=== PATIENT | female | born 2000 | race Caucasian/White ===

== ENCOUNTER → 2019-08-25 15:33 | Outpatient (CLI) | payer BC, SELFPAY ==
[2019-08-25 17:17] LABS: Appearance Urine UA CLEAR; Bilirubin Urine UA NEGATIVE (NEGATIVE); Color Urine UA YELLOW; Glucose Urine UA NEGATIVE (Negative); Ketones Urine UA NEGATIVE (NEGATIVE); Leukocyte Esterase Urine UA NEGATIVE (NEGATIVE); Nitrite Urine UA NEGATIVE (Negative); Occult Blood Urine UA TRACE-INTACT (Negative); Protein Urine UA NEGATIVE (Negative); Specific Gravity Urine UA 1.025 (1.000-1.035); Urobilinogen Urine UA 0.2 E.U./dL (0.2)
[2019-08-25 17:39] LABS: Add Manual Diff / Slide Review NO; Basophils Absolute Auto 100 /uL (0-100); Eosinophils Absolute Auto 100 /uL (0-450); Eosinophils Percent Auto 0.6 % (2-4); Hemoglobin 12.8 g/dL (12.0-16.0); Lymphocytes Absolute Auto 1500 /uL (1100-4500); Lymphocytes Percent Auto 17.5 % (25-40); Mean Corpuscular HGB Conc 33.9 % (30-36); Mean Corpuscular Hemoglobin 30.4 PG (26-34); Mean Corpuscular Volume 89.9 fL (80-100); Monocytes Absolute Auto 1000 /uL (0-900); Neutrophils Absolute Auto 6100 /uL (1500-7000); Neutrophils Percent Auto 69.9 % (50-75); Platelet Count 276 X10^3/uL (150-400); Red Blood Cell Count 4.22 X10^6/uL (4.0-5.2); Red Cell Distribution Width 12.9 % (11.6-14.8); White Blood Cell Count 8.7 X10^3/uL (4.5-11.0)
[2019-08-25 18:45] LABS: Hepatitis B Surface Antigen NEGATIVE s/c (NEGATIVE); Rubella Antibody IgG 4.1 IU/mL (>15)
[2019-08-25 18:57] LABS: HIV 1 & 2 Ab/Ag 4th Gen Combo NEGATIVE (NEGATIVE); Hep C Virus Ab w/Reflex Quant NEGATIVE s/c (NEGATIVE)
[2019-08-27 13:55] LABS: Varicella IgG Antibody < 135.00 Index (< 135.00)
[2019-08-27 22:23] LABS: RPR Screen Nonreactive (Nonreactive)
== END ==
PROVIDERS: PCP Family Medicine; Visit Provider Family Medicine
DX: Z34.01 Encounter for supervision of normal first pregnancy, first trimester (principal)
CPT/HCPCS: 36415; 80055; 81003; 86787; 86803; 86850; 86900; 86901; 87086; 87389

== ENCOUNTER → 2019-11-23 08:31 | Outpatient (CLI) | payer BC, SELFPAY ==
--- NOTE | 2019-11-23 08:33 | DI.US.S_ITS ---
PROCEDURE: US OB >= 14 WEEKS FETUS INDICATIONS: ANATOMY SCAN OUTSIDE/PRIOR DATING DATA: Last menstrual period (LMP): 07/06/19. LMP-based estimated date of delivery (RACHEAL): 04/11/20. First dating scan (date and location): This study. Estimated date of delivery (RACHEAL) from first dating scan: 04/14/20. TECHNIQUE: Real-time scanning was performed of the fetus, with image documentation and biometric measurements. COMPARISON: Reportedly first trimester OB ultrasound was performed but imaging from that examination is not available for review. FINDINGS: General: A single living intrauterine gestation is present. Presentation: Breech Placenta: Placental position is fundal, without previa. Amniotic fluid index: 13.3 cm, normal range is 5-24 cm. heart rate: 152 beats per minute. Maternal cervical canal: 3.6 cm long. Normal lower limit is 2.5 cm. biometrics: Biparietal diameter: 4.6 cm, 19 weeks 6 days Head circumference: 16.9 cm, 19 weeks 3 days Abdominal circumference: 14.5 cm, 19 weeks 6 days Femur length: 2.9 cm, 19 weeks 0 days Estimated gestational age from initial scan: Not available for review.. Composite gestational age from present scan: 19 weeks 4 days Estimated weight and percentile: 293 g, 18th percentile Measurement variability for biometric dating: +/- 7 days from 14 weeks to 15 weeks 6 days gestation, +/- 10 days from 16 weeks to 21 weeks 6 days gestation, +/- 2 weeks from 22 weeks to 27 weeks 6 days gestation, +/- 3 weeks for 28 weeks gestation or later. weight reference: 4500 g or EFW >90/95% is considered macrosomia or large for gestational age. EFW <10% is small for gestational age. EFW 5% or less is considered intra-uterine growth restriction. Anatomic survey: Neuro: Ventricles are non-dilated at less than 10 mm. Cisterna magna is normal at 3-11 mm. Cerebellum is normal in size and morphology. Nuchal skin fold: Rotation of the fetus and relative neck extension resulted in variable thickness measurements, with inability to visualize the lower margin of the occipital bone in mid sagittal plane to establish accurate cross-sectional thickness. Face: Nose and lips, facial profile are normal. Spine: Not well-visualized due to positioning and rotation.. Heart: 4-chambered heart is present, with ventricular outflow tracts were not well seen. Diaphragm: Diaphragm is intact. Stomach: Not well-seen. Kidneys: Not well-seen. Cord: 2-vessel cord has orthotopic insertion. Bladder: Normal in size. Extremities: All 4 extremities identified. IMPRESSION: 1. Reportedly a first trimester OB ultrasound was performed but is not available for review. Images from that study should be obtained if possible and be entered into the PACS system for reference to this examination and the anticipated followup evaluation discussed below. 2. The current estimated age is 19 weeks 4 days with delivery date projected to be centered on 04/14/20. Accuracy of dating is highest with the earliest OB ultrasound and therefore reference to the first OB ultrasound is recommended to establish appropriate interval growth. 3. anatomic survey is incomplete as detailed above. Note is made of what appears to be a 2 vessels cord. Significant portions of the anatomy were not obtained, and repeat sonographic assessment is recommended within 7-10 days. Current presentation is breech. Dictated by: Rivera Rapp M.D. on 11/23/2019 at 14:55 Approved by: Rivera Rapp M.D. on 11/23/2019 at 15:52
== END ==
PROVIDERS: PCP Family Medicine; Referring Provider Family Medicine; Visit Provider Family Medicine
DX: Z34.02 Encounter for supervision of normal first pregnancy, second trimester (principal); Z3A.19 19 weeks gestation of pregnancy
CPT/HCPCS: 76811

== ENCOUNTER → 2020-01-18 15:50 | Outpatient (CLI) | payer BC, SELFPAY ==
[2020-01-18 17:25] LABS: Add Manual Diff / Slide Review NO; Basophils Absolute Auto 100 /uL (0-100); Basophils Percent Auto 0.4 % (0-2); Eosinophils Absolute Auto 100 /uL (0-450); Eosinophils Percent Auto 0.6 % (2-4); Hematocrit 31.9 % (36-46); Hemoglobin 11.1 g/dL (12.0-16.0); Lymphocytes Absolute Auto 1200 /uL (1100-4500); Lymphocytes Percent Auto 8.5 % (25-40); Mean Corpuscular HGB Conc 34.9 % (30-36); Mean Corpuscular Hemoglobin 31.4 PG (26-34); Mean Corpuscular Volume 90.1 fL (80-100); Monocytes Absolute Auto 1500 /uL (0-900); Monocytes Percent Auto 10.4 % (3-14); Neutrophils Absolute Auto 11500 /uL (1500-7000); Neutrophils Percent Auto 80.1 % (50-75); Platelet Count 244 X10^3/uL (150-400); Red Blood Cell Count 3.54 X10^6/uL (4.0-5.2); Red Cell Distribution Width 12.6 % (11.6-14.8); White Blood Cell Count 14.4 X10^3/uL (4.5-11.0)
[2020-01-18 17:53] LABS: GTT (PREG) 1 Hour PP 50gm Dose 116 mg/dL (76-139)
== END ==
PROVIDERS: PCP Family Medicine; Referring Provider Family Medicine; Visit Provider Family Medicine
DX: Z34.81 Encounter for supervision of other normal pregnancy, first trimester (principal)
CPT/HCPCS: 36415; 82950; 85025

== ENCOUNTER 2020-02-17 13:58 | Outpatient (CLI) | payer BC, SELFPAY ==
--- NOTE | 2020-02-17 14:45 | PM.OBTRLD ---
Visit Information Visit Information Date of evaluation: 02/17/20 Primary OB Provider: Britta Wilburn On-call OB Provider: Flora Baca Reason for Evaluation: Yes non-stress test non-stress test reason: other (Two vessel cord, tetralogy of Fallot, IUGR, ambiguous genitalia, possible SLoS) Vital Signs Vital Signs: Temperature 97.5 Blood pressure 136/77 Heart rate 95 PFSH Medical History Anxiety (Acute) Pityriasis rosea (Acute) Family History Mother Depression Anxiety and depression Father Anxiety and depression Grandfather Hypertension Afib H/O aortic valve replacement Congestive heart failure Grandmother Rheumatoid arthritis Multi-organ failure with liver failure Grandfather Acute alcohol abuse Grandmother Emphysema of lung Sister Anxiety and depression Social History marital status: unmarried,living together (engaged) household members: significant other pets and animals: Yes (cat and aware) education level: high school 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 No contractions on the monitor. NST was reactive. Follow-up as scheduled with Dr. Wilburn. OB Disposition: home
== END 2020-02-17 14:35 | disposition home or self-care (01) ==
LOC: LABOR 14:20 → OB 02-18 11:34
PROVIDERS: PCP Family Medicine; Referring Provider Family Medicine; Visit Provider Family Medicine
DX: O35.8XX0 Maternal care for other (suspected) fetal abnormality and damage, not applicable or unspecified (principal); P05.9 Newborn affected by slow intrauterine growth, unspecified; Z3A.32 32 weeks gestation of pregnancy
CPT/HCPCS: 59025; G0378; G0379

== ENCOUNTER → 2020-02-21 10:20 | Outpatient (CLI) | payer BC, SELFPAY ==
--- NOTE | 2020-02-21 10:27 | DI.US.S_ITS ---
PROCEDURE: US OB LIMITED INDICATIONS: 2-VESSEL CORD; TETROLOGY OF FALLOT OUTSIDE/PRIOR DATING DATA: Last menstrual period (LMP): 07/06/19. LMP-based estimated date of delivery (RACHEAL): 04/11/20 . First dating scan (date and location): Not available . Estimated date of delivery (RACHEAL) from first dating scan: Not available . TECHNIQUE: Real-time scanning was performed of the fetus, with image documentation. Endovaginal scanning: Not performed. COMPARISON: None. FINDINGS: A single living intrauterine gestation is present. Presentation: Vertex. Placenta: Placental position is right fundal , without previa. Amniotic fluid index: 16.3 cm, normal range is 5-24 cm. heart rate: 137 beats per minute. Maternal cervical canal: 3.5 cm long. Normal lower limit is 2.5 cm. Estimated gestational age from initial scan: 32 weeks 3 days . Two vessel cord noted, previously documented. The systolic/diastolic ratio is 3.5/2.9 IMPRESSION: Single living intrauterine gestation, documented 2 vessel cord, no sign of hydrops, normal amniotic fluid volume. Cord systolic/diastolic ratio at 2 sites measures 3.5 and 2.9, respectively. Dictated by: Rivera Rapp M.D. on 02/21/2020 at 13:37 Approved by: Rivera Rapp M.D. on 02/21/2020 at 13:41
[2020-02-21 10:59] LABS: Protein (Total) Urine Random 10 mg/dL (0-12)
[2020-02-21 11:00] LABS: Creatinine Urine Random 73.3 mg/dL; Protein (Total) Urine Random 10 mg/dL (0-12); Protein Creatinine Ratio Urine 0.13 GRAM/24H
[2020-02-21 11:01] LABS: Collection Time Urine 24 Hours; Total Protein 24 Hour Urine 185 mg/day (42-225); Total Volume Urine 1850 mL
[2020-02-21 11:14] LABS: Add Manual Diff / Slide Review NO; Basophils Absolute Auto 100 /uL (0-100); Basophils Percent Auto 0.5 % (0-2); Eosinophils Absolute Auto 100 /uL (0-450); Eosinophils Percent Auto 0.4 % (2-4); Hemoglobin 11.7 g/dL (12.0-16.0); Lymphocytes Absolute Auto 1200 /uL (1100-4500); Mean Corpuscular HGB Conc 33.5 % (30-36); Mean Corpuscular Hemoglobin 30.2 PG (26-34); Mean Corpuscular Volume 90.1 fL (80-100); Monocytes Absolute Auto 1200 /uL (0-900); Monocytes Percent Auto 8.3 % (3-14); Neutrophils Absolute Auto 12000 /uL (1500-7000); Neutrophils Percent Auto 82.8 % (50-75); Platelet Count 230 X10^3/uL (150-400); Red Blood Cell Count 3.88 X10^6/uL (4.0-5.2); Red Cell Distribution Width 12.7 % (11.6-14.8); White Blood Cell Count 14.5 X10^3/uL (4.5-11.0)
[2020-02-21 11:28] LABS: Alanine Aminotransferase 12 IU/L (<35); Albumin 3.7 g/dL (3.5-5.0); Albumin Globulin Ratio 1.1 (1.0-2.8); Alkaline Phosphatase 146 U/L (38-126); Aspartate Aminotransferase 20 IU/L (14-36); BUN Creatinine Ratio 13.7 (6-22); Bilirubin Total 0.3 mg/dL (0.2-1.3); Blood Urea Nitrogen 7 mg/dL (7-17); Calcium 9.4 mg/dL (8.4-10.2); Carbon Dioxide 26 mmol/L (22-32); Chloride 106 mmol/L (98-107); Estimated Glomerular Filt Rate > 60.0 mL/min (>60); Globulin 3.5 g/dL (1.7-4.1); Glucose 109 mg/dL (70-100); HEMOLYSIS < 15 (0-50); Potassium 3.9 mmol/L (3.4-5.1); Sodium 140 mmol/L (137-145); Total Protein 7.2 g/dL (6.3-8.2); Uric Acid 4.1 mg/dL (2.5-6.2)
== END ==
PROVIDERS: PCP Family Medicine; Referring Provider Family Medicine; Visit Provider Family Medicine
DX: O09.93 Supervision of high risk pregnancy, unspecified, third trimester (principal); O36.5930 Maternal care for other known or suspected poor fetal growth, third trimester, not applicable or unspecified; O35.8XX0 Maternal care for other (suspected) fetal abnormality and damage, not applicable or unspecified; O16.3 Unspecified maternal hypertension, third trimester; R03.0 Elevated blood-pressure reading, without diagnosis of hypertension; Z3A.32 32 weeks gestation of pregnancy
CPT/HCPCS: 36415; 59025; 76815; 80053; 82570; 84156; 84550; 85025

== ENCOUNTER 2020-02-21 10:50 | Outpatient (CLI) | payer BC, SELFPAY ==
--- NOTE | 2020-02-21 11:36 | PM.OBTRLD ---
Visit Information Visit Information Date of evaluation: 02/21/20 Primary OB Provider: Britta Wilburn Reason for Evaluation: Yes non-stress test non-stress test reason: other (tetralogy of fallot, IUGR) Comments/Additional reasons for admission: Pt here for NST due to IUGR. also complicated by tetralogy of fallot, pelvic kidney, ambiguous genitalia. Pts BPs have been rising recently - not formally diagnosed with gestational HTN or pre-eclampsia. [facility] Medical History (Updated 02/21/20 @ 11:39 by Britta Wilburn MD) Anxiety (Acute) Pityriasis rosea (Acute) Family History Mother Depression Anxiety and depression Father Anxiety and depression Grandfather Hypertension Afib H/O aortic valve replacement Congestive heart failure Grandmother Rheumatoid arthritis Multi-organ failure with liver failure Grandfather Acute alcohol abuse Grandmother Emphysema of lung Sister Anxiety and depression Social History marital status: unmarried,living together (engaged) household members: significant other pets and animals: Yes (cat and aware) education level: high school 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 occupational exposures/hazards: Yes (safety issues with some patients ) special milagros needs: No Smoking Status: Former smoker (smoked weed - stopped 5 months ago) Evaluation Evaluation Baseline heart rate: 130 Variability: Moderate (11-25) monitor accelerations: Present monitor decelerations: Absent Category of Tracing: I Diagnosis, Plan/Disposition Final Diagnosis (1) Elevated blood pressure affecting in third trimester, antepartum: Status: Acute (2) Tetralogy of Fallot of fetus affecting management of mother in brown , antepartum: Status: Acute (3) IUGR (intrauterine growth restriction): Status: Acute (4) 32 weeks gestation of : Status: Acute Plan/Disposition Plan: 32wks gestation here for NST due to IUGR with complicated with above as well. NST reactive. Umbilical dopplers today as well through the hospital. OB Disposition: home
== END 2020-02-21 11:29 | disposition home or self-care (01) ==
LOC: LABOR 10:59 → OB 02-22 10:01
PROVIDERS: PCP Family Medicine; Referring Provider Family Medicine; Visit Provider Family Medicine
DX: O36.5930 Maternal care for other known or suspected poor fetal growth, third trimester, not applicable or unspecified (principal); O35.8XX0 Maternal care for other (suspected) fetal abnormality and damage, not applicable or unspecified; R03.0 Elevated blood-pressure reading, without diagnosis of hypertension; Z3A.32 32 weeks gestation of pregnancy
CPT/HCPCS: 59025; G0378; G0379

== ENCOUNTER 2020-02-24 14:02 | Outpatient (CLI) | payer BC, SELFPAY ==
--- NOTE | 2020-02-24 14:28 | PM.OBTRLD ---
Visit Information Visit Information Date of evaluation: 02/24/20 Primary OB Provider: Britta Wilburn On-call OB Provider: Akila Dow Reason for Evaluation: Yes non-stress test non-stress test reason: other (Tetralogy of Fallot) [facility] Medical History (Updated 02/24/20 @ 14:30 by Akila Dow MD) Anxiety (Acute) Pityriasis rosea (Acute) Family History Mother Depression Anxiety and depression Father Anxiety and depression Grandfather Hypertension Afib H/O aortic valve replacement Congestive heart failure Grandmother Rheumatoid arthritis Multi-organ failure with liver failure Grandfather Acute alcohol abuse Grandmother Emphysema of lung Sister Anxiety and depression Social History marital status: unmarried,living together (engaged) household members: significant other pets and animals: Yes (cat and aware) education level: high school 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 Wilburn as scheduled OB Disposition: home
== END 2020-02-24 14:30 | disposition home or self-care (01) ==
LOC: LABOR 14:08 → OB 02-25 12:42
PROVIDERS: PCP Family Medicine; Referring Provider Family Medicine; Visit Provider Family Medicine
DX: O35.8XX0 Maternal care for other (suspected) fetal abnormality and damage, not applicable or unspecified (principal); Z3A.33 33 weeks gestation of pregnancy
CPT/HCPCS: 59025; G0378; G0379

== ENCOUNTER 2020-02-25 06:20 | Inpatient (IN) | payer BC, SELFPAY ==
[2020-02-25 07:22] VITALS: BP 132/86
--- NOTE | 2020-02-25 07:42 | P.HPOB_ITS ---
OB HPI Date/Time Date of admission: 02/25/20 Date Patient Seen: 02/25/20 Time Patient Seen: 07:42 History of Present Condition Chief complaint: MATERNITY : 1 Para: 0 Estimated Date of Delivery: 04/11/20 Estimated Gestational Age (weeks): 32 Narrative: Jesusita Gilbert is a 19 year old female 1 para 032 weeks gestation who presented with gross rupture of membranes. She reports waking up to a gush of clear fluid. She continues to leak. No vaginal bleeding. Contractions started almost immediately. Initially they were very very mild, but now are about a 3/10. Her has been complicated by multiple anomalies including Tetralogy of Fallot, right pelvic kidney, IUGR, and ambiguous genitalia. She has been followed by Maternal- Medicine at the [facility], and the plan was to transfer care at 36 weeks. History of Present care: good care, initiated at week # (6), number of visits (8 here, several at ) and pounds weight gain (19) Dating criteria: LMP confirmed by 1st trimester US Ultrasounds: abnormal US findings Abnormal ultrasound findings: Tetralogy of Fallot, right pelvic kidney, ambiguous genitalia, IUGR Obstetrical complications: growth restriction Medical complications: none Preadmission Labs Blood type: O (+) positive -: Antibody screen: negative, GBS status: unknown, HBsAG: negative, HIV: negative and RPR/VDLR: negative -: Rubella: not immune and Varicella: not immune HCT: 35 HCAB: negative Urine: Lactobacillus 1 hr GTT: 116 Prior (ies) History: N/A Evaluation Evaluation Baseline heart rate: 150 Variability: Moderate (11-25) monitor accelerations: Present monitor decelerations: Absent Contraction Frequency (minutes): 2 Uterine Contraction Intensity: Mild Category of Tracing: I Cervical dilation (cm): 0 Cervical effacement (%): 25 station: -2 Non-invasive Membranes Rupture Test: positive Comments: Bedside ultrasound: Vertex [facility] Medical History (Updated 02/24/20 @ 14:30 by Akila Dow MD) Anxiety (Acute) Pityriasis rosea (Acute) Family History Mother Depression Anxiety and depression Father Anxiety and depression Grandfather Hypertension Afib H/O aortic valve replacement Congestive heart failure Grandmother Rheumatoid arthritis Multi-organ failure with liver failure Grandfather Acute alcohol abuse Grandmother Emphysema of lung Sister Anxiety and depression Social History marital status: unmarried,living together (engaged) household members: significant other pets and animals: Yes (cat and aware) education level: high school 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[employer]) current occupational exposures/hazards: Yes (safety issues with some patients ) special milagros needs: No Smoking Status: Former smoker Meds Home Medications and Allergies Home Medications Medication Instructions Recorded Confirmed Type prenat.vits,oscar,gbb-xivy-rjnbo 1 tab PO DAILY 08/23/19 02/15/20 History Allergies Allergy/AdvReac Type Severity Reaction Status Date / Time No Known Drug Allergies Allergy Verified 02/15/20 08:27 Exam Vital Signs (past 8 hours): - 02/25/20 07:22 Blood Pressure 132/86 Narrative Exam Narrative: Generally: A well-developed, well-nourished female, in mild distress Lungs: Clear to auscultation bilaterally Cardiovascular: Regular rate and rhythm Abdomen: Soft, nontender Fundal height: 30 cm Extremities: Negative Homans, no edema Sterile speculum exam: Copious amounts of clear amniotic fluid Digital exam: Cervix closed, 25% effaced, firm, vertex at -2 station Bedside ultrasound: Vertex presentation Assessment and Plan Assessment and Plan Assessment and Plan narrative: Assessment: 19-year-old 1 para 0 at 32 weeks gestation with spontaneous rupture of membranes Anomalies of the baby including tetralogy of Fallot, right pelvic kidney IUGR Contractions every 1-2 minutes, but cervix closed Plan: Transfer to the [facility], Dr. Vivas Magnesium sulfate 4 g IV load, then 2 g IV maintenance dose Ampicillin 2 g IV and azithromycin 500 mg IV Godoy catheter for transport Betamethasone 12 mg IM Patient accepted by Dr. Vivas Time Spent with Patient Total time spent with greater than 50% in coordination of care (as documented) at patient's floor/unit and/or counseling patient:: 25 - 35 minutes
[2020-02-25] MEDS: MAGNESIUM SULFATE 4 GM/100 ML PIGGYBACK IV (07:43)
[2020-02-25] MEDS: LACTATED RINGERS 1,000 ML 42 ML IV (07:43)
[2020-02-25] MEDS: BETAMETHASONE 30 MG/5 ML MDV 12 MG IM (07:56)
[2020-02-25] MEDS: AZITHROMYCIN 500 MG in DEXTROSE 5% IN WATER 250 ML IV (07:59)
[2020-02-25] MEDS: ONDANSETRON 4 MG/2 ML INJ (08:05)
[2020-02-25] MEDS: MAGNESIUM SULFATE 20 GM/500 ML IV.SOLN IV (08:09)
[2020-02-25 08:30] LABS: Add Manual Diff / Slide Review NO; Basophils Absolute Auto 100 /uL (0-100); Basophils Percent Auto 0.7 % (0-2); Eosinophils Absolute Auto 100 /uL (0-450); Eosinophils Percent Auto 0.6 % (2-4); Hematocrit 34.5 % (36-46); Hemoglobin 11.4 g/dL (12.0-16.0); Lymphocytes Absolute Auto 1700 /uL (1100-4500); Mean Corpuscular Hemoglobin 29.4 PG (26-34); Mean Corpuscular Volume 89.1 fL (80-100); Monocytes Absolute Auto 1500 /uL (0-900); Monocytes Percent Auto 10.8 % (3-14); Neutrophils Absolute Auto 10800 /uL (1500-7000); Neutrophils Percent Auto 75.9 % (50-75); Platelet Count 219 X10^3/uL (150-400); Red Blood Cell Count 3.87 X10^6/uL (4.0-5.2); Red Cell Distribution Width 13.2 % (11.6-14.8); White Blood Cell Count 14.2 X10^3/uL (4.5-11.0)
[2020-02-25 09:24] LABS: Bacteria Urine None Seen; RBC Urine None Seen (0-5/HPF); WBC Urine None Seen (0-5/HPF)
[2020-02-25 09:28] LABS: Appearance Urine UA CLEAR; Bilirubin Urine UA NEGATIVE (NEGATIVE); Color Urine UA YELLOW; Glucose Urine UA NEGATIVE (Negative); Ketones Urine UA NEGATIVE (NEGATIVE); Leukocyte Esterase Urine UA NEGATIVE (NEGATIVE); Nitrite Urine UA NEGATIVE (Negative); Occult Blood Urine UA NEGATIVE (Negative); Protein Urine UA NEGATIVE (Negative); Urobilinogen Urine UA 0.2 E.U./dL (0.2)
[2020-02-25 09:42] LABS: Culture Indicated Urine Cult Not Indicated; Urine Comments Microscopic Normal
[2020-02-25 11:13] LABS: COVID19 -Nasal RAPID Negative (Negative)
[2020-02-25 15:31] LABS: Strep Grp B PCR NEG for Grp B Strep
== END 2020-02-25 08:52 | disposition short-term general hospital (02) | DRG 833 ==
PROVIDERS: Obstetrics & Gynecology; Admitting Provider Family Medicine; PCP Family Medicine; Referring Provider Family Medicine; Visit Provider Family Medicine
DX: O60.03 Preterm labor without delivery, third trimester (principal); Z3A.32 32 weeks gestation of pregnancy; O36.5930 Maternal care for other known or suspected poor fetal growth, third trimester, not applicable or unspecified; O35.8XX0 Maternal care for other (suspected) fetal abnormality and damage, not applicable or unspecified; Z11.59 Encounter for screening for other viral diseases; Q56.4 Indeterminate sex, unspecified
CPT/HCPCS: 59025; 59050; 76815; 81001; 84112; 85025; 87635; 87653; 96360; 96372; 99222; G0379; J0702; J2405; J3475

== ENCOUNTER → 2021-01-29 14:44 | Outpatient (CLI) | payer BC, SELFPAY ==
[2021-01-29 15:50] LABS: HCG Quantitative /Beta subunit 3.1 mIU/mL
== END ==
PROVIDERS: PCP Family Medicine; Referring Provider Family Medicine; Visit Provider Family Medicine
DX: N91.2 Amenorrhea, unspecified (principal)
CPT/HCPCS: 36415; 84702

== ENCOUNTER → 2022-10-21 07:45 | Outpatient (CLI) | payer BC, SELFPAY ==
--- NOTE | 2022-10-21 07:46 | DI.US.S_ITS ---
PROCEDURE: US OB LIMITED INDICATIONS: SIZE>DATING OUTSIDE/PRIOR DATING DATA: Last menstrual period (LMP): 04/07/2022. LMP-based estimated date of delivery (RACHEAL): 01/12/2023. TECHNIQUE: Real-time scanning was performed of the fetus, with image documentation and biometric measurements. Endovaginal scanning: Not performed COMPARISON: Outside Facility, , OB > 14 WEEKS, 08/06/2022, 14:35. Outside Facility, , OB FOLLOW UP, 08/20/2022, 13:06. [facility], OB LIMITED, 02/21/2020, 11:35. FINDINGS: General: A single living intrauterine gestation is present. Presentation: Breech. Placenta: Placental position is posterior , without previa. Amniotic fluid index: 20.3 cm, normal range is 5-24 cm. Single deepest vertical pocket is 6.5 cm. heart rate: 144 beats per minute. Maternal cervical canal: 4.8 cm long. Normal lower limit is 2.5 cm. biometrics: Biparietal diameter: 6.9 centimeters, 27 weeks 5 days Head circumference: 25.1 centimeters, 27 weeks 1 day Abdominal circumference: 23.2 centimeters, 27 weeks 4 days Femur length: 5.1 centimeters, 27 weeks 3 days estimated gestational age: 28 weeks 1 day Composite gestational age from present scan: 27 weeks 3 days Estimated weight and percentile: 1079 grams, 16th percentile Other: Not applicable. IMPRESSION: 1. Single living intrauterine in breech presentation. 2. Estimated weight at the 16th percentile. We strive to produce accurate, complete, and clear reports of imaging services. To assist us in improving patient care, this report was composed using standard report templates and voice recognition software. Therefore, it may contain abnormal punctuation, insertions and/or omissions. Occasional wrong-word or sound-alike substitutions may occur. Though we review the report and make efforts to correct it, we do recommend that the report be read carefully in proper context to recognize any text inaccuracies. Dictated by: James Collins M.D. on 10/21/2022 at 10:43 Approved by: James Collins M.D. on 10/21/2022 at 10:53
== END ==
PROVIDERS: PCP Family Medicine; Referring Provider Family Medicine; Visit Provider Family Medicine
DX: O26.842 Uterine size-date discrepancy, second trimester (principal); Z3A.27 27 weeks gestation of pregnancy
CPT/HCPCS: 76815

== ENCOUNTER → 2022-10-24 09:54 | Outpatient (CLI) | payer BC, SELFPAY ==
[2022-10-24 12:27] LABS: GTT (PREG) 1 Hour PP 50gm Dose 78 mg/dL (76-139)
== END ==
PROVIDERS: PCP Family Medicine; Referring Provider Family Medicine; Visit Provider Family Medicine
DX: Z34.82 Encounter for supervision of other normal pregnancy, second trimester (principal)
CPT/HCPCS: 36415; 82950

== ENCOUNTER 2022-11-13 17:09 | Outpatient (CLI) | payer BC, SELFPAY | END 2022-11-13 18:16 | disposition home or self-care (01) | LOC: LABOR 17:38 → OB 11-18 15:52 | PROVIDERS: PCP Family Medicine; Referring Provider Family Medicine; Visit Provider Family Medicine | DX: O36.8130 Decreased fetal movements, third trimester, not applicable or unspecified (principal); Z3A.31 31 weeks gestation of pregnancy | CPT/HCPCS: 59025; G0378; G0379 ==

== ENCOUNTER → 2022-12-13 07:45 | Outpatient (CLI) | payer BC, SELFPAY ==
--- NOTE | 2022-12-13 07:47 | DI.US.S_ITS ---
PROCEDURE: US OB LIMITED INDICATIONS: SGA OUTSIDE/PRIOR DATING DATA: Last menstrual period (LMP): 04/07/2022. LMP-based estimated date of delivery (RACHEAL): 01/12/2023. First dating scan (date and location): 10/21/2022. Estimated date of delivery (RACHEAL) from first dating scan: 01/17/2023. The calculations are made using the clinical RACHEAL of 01/12/2023. TECHNIQUE: Real-time scanning was performed of the fetus, with image documentation and biometric measurements. COMPARISON: [facility], , OB LIMITED, 10/21/2022, 6:59. FINDINGS: General: A single living intrauterine gestation is present. Presentation: Vertex. Placenta: Placental position is posterior , without previa. Amniotic fluid index: 21.3 cm, normal range is 5-24 cm. Single deepest vertical pocket is 8.2 cm. heart rate: 149 beats per minute. Maternal cervical canal: 4.6 cm long. Normal lower limit is 2.5 cm. biometrics: Biparietal diameter: 8.9 cm 36 weeks 3 days Head circumference: 31.6 cm 35 weeks 3 days Abdominal circumference: 30.9 cm 34 weeks 6 days Femur length: 6.9 cm 35 weeks 4 days Clinically estimated gestational age: 35 weeks 5 days Composite gestational age from present scan: 35 weeks 4 days Estimated weight and percentile: 2006 are 30 g, 37th percentile Other: Not applicable. IMPRESSION: Single live intrauterine with ASHISH measuring 21.3 cm slightly increased compared to prior exam, at which time measuring 20.3 cm. We strive to produce accurate, complete, and clear reports of imaging services. To assist us in improving patient care, this report was composed using standard report templates and voice recognition software. Therefore, it may contain abnormal punctuation, insertions and/or omissions. Occasional wrong-word or sound-alike substitutions may occur. Though we review the report and make efforts to correct it, we do recommend that the report be read carefully in proper context to recognize any text inaccuracies. Dictated by: Rosa Davidson M.D. on 12/13/2022 at 15:12 Approved by: Rosa Davidson M.D. on 12/13/2022 at 15:17
== END ==
PROVIDERS: PCP Family Medicine; Referring Provider Family Medicine; Visit Provider Family Medicine
DX: O36.5930 Maternal care for other known or suspected poor fetal growth, third trimester, not applicable or unspecified (principal); Z3A.35 35 weeks gestation of pregnancy
CPT/HCPCS: 76815

== ENCOUNTER → 2022-12-25 12:04 | Outpatient (CLI) | payer BC, SELFPAY ==
[2022-12-27 08:30] LABS: Strep Grp B PCR POS for Grp B Strep
== END ==
PROVIDERS: PCP Family Medicine; Visit Provider Family Medicine
DX: Z34.83 Encounter for supervision of other normal pregnancy, third trimester (principal); Z3A.37 37 weeks gestation of pregnancy
CPT/HCPCS: 87653

== ENCOUNTER 2023-01-06 07:24 | Inpatient (IN) | payer BC, SELFPAY ==
[2023-01-06 08:24] VITALS: BP 123/80
[2023-01-06 08:41] LABS: Add Manual Diff / Slide Review NO; Basophils Absolute Auto 100 /uL (0-100); Basophils Percent Auto 0.5 % (0-2); Eosinophils Absolute Auto 100 /uL (0-450); Eosinophils Percent Auto 0.5 % (2-4); Lymphocytes Absolute Auto 1600 /uL (1100-4500); Lymphocytes Percent Auto 12.5 % (25-40); Mean Corpuscular HGB Conc 32.4 % (30-36); Mean Corpuscular Hemoglobin 25.8 PG (26-34); Mean Corpuscular Volume 79.6 fL (80-100); Monocytes Absolute Auto 1200 /uL (0-900); Neutrophils Absolute Auto 10200 /uL (1500-7000); Neutrophils Percent Auto 77.5 % (50-75); Platelet Count 278 X10^3/uL (150-400); Red Blood Cell Count 3.89 X10^6/uL (4.0-5.2); Red Cell Distribution Width 15.9 % (11.6-14.8); White Blood Cell Count 13.1 X10^3/uL (4.5-11.0)
[2023-01-06] MEDS: LACTATED RINGERS 1,000 ML 100 ML IV (08:59)
[2023-01-06] MEDS: OXYTOCIN PREMIX 30 UNIT/500 ML PLAST..BAG IV (09:00)
--- NOTE | 2023-01-06 10:25 | PM.OBHP.IH.1 ---
OB HPI Date/Time Date of admission: 01/06/23 Date Patient Seen: 01/06/23 History of Present Condition Chief complaint: OB RACHEAL Calculator Estimated Delivery Date Method Current WG Current Estimate 01/12/23 LMP (Certain) 39w 1d Estimated Gestational Age (weeks): 39w1d : 3 Para: 1 Narrative: 22yo at 39w1d here for elective IOL. She denies any vaginal bleeding, LOF, or contractions. She is feeling her baby move regularly. Her has been uncomplicated. care: good care, initiated at week # (8) and pounds weight gain (36) Dating criteria OB: LMP confirmed by 1st trimester US Ultrasounds: normal 1st trimester US and normal mid trimester US Obstetrical complications: none Medical complications OB: none Preadmission Labs Last OB Lab Results: Blood Type O Positive 01/06/23 08:00 Antibody Screen Negative 01/06/23 08:00 Hematocrit 31.0 % (36-46) L 01/06/23 08:00 Hemoglobin 10.0 g/dL (12.0-16.0) L 01/06/23 08:00 Hepatitis B Surface Antigen Negative s/c (NEGATIVE) 08/25/19 15:45 Hepatitis C Antibody Negative s/c (NEGATIVE) 08/25/19 15:45 Rubella Antibody 4.1 IU/mL (>15) L 08/25/19 15:45 Varicella-Zoster IgG Antibody < 135.00 Index (< 135.00) 08/25/19 15:45 Glucose 1 Hour 78 mg/dL (76-139) 10/24/22 10:34 Group B Streptococcus (PCR) Pos for grp b strep H 12/25/22 12:04 -: Chlamydia screen: negative, Gonorrhea screen: negative and Urine: negative Genetic Screens: Cell-free DNA: Normal External Labs -: Urine: negative Prior (ies) Past Pregnancies Del. Date GA/Weeks Labor Lgth Wt Sex Route Outcome Anesthesia Place Delv Breastfeed Preg Comp Name 03/09/20 35 3 lb 15 oz Male vaginal live - UW 8 months (pumped) intrauterine growth restr delivery labor anomaly Balta 01/02/21 4-5 spontaneous Delivery Date: 03/09/20 Last Updated by: Linnette Montero RN tetralogy of Fallot, pelvic kidney, 2-vessel cord Delivery Date: 01/02/21 Last Updated by: Linnette Montero RN passed spontaneously, no complications Evaluation Evaluation Baseline heart rate: 130 Variability: Moderate (11-25) monitor accelerations: Present Monitor Decelerations: Absent Status: Category l Dilation (cm): 4 Effacement (%): 50 Dilation: 3-4 cm Effacement: 40-50% station: -3 Position of cervix: anterior Consistency: soft Hutchison score: 7 PFSH Medical History (Updated 10/16/22 @ 13:02 by Britta Wilburn MD) Anxiety Elevated blood pressure affecting in third trimester, antepartum IUGR (intrauterine growth restriction) Pityriasis rosea Retained placenta Tetralogy of Fallot of fetus affecting management of mother in brown , antepartum Two vessel umbilical cord Surgical History (Updated 09/02/22 @ 13:44 by Linnette Montero RN) No pertinent past surgical history Family History (Updated 09/02/22 @ 13:47 by Linnette Montero RN) Mother Depression Anxiety and depression Father Anxiety and depression Grandfather Hypertension Afib H/O aortic valve replacement Congestive heart failure Grandmother Rheumatoid arthritis Multi-organ failure with liver failure Grandfather Acute alcohol abuse Grandmother Emphysema of lung Sister Anxiety and depression Sister Bipolar disorder Social History marital status: number of children: 1 household members: significant other, family and children lives independently: Yes caregiver/support person: Yes housing: apartment pets and animals: Yes (1 cat, 1 dog, not involved in litter box care) education level: high school occupational status: employed current occupational exposures/hazards: Yes (safety issues with some patients ) special milagros needs: No travel history: over 6 months ago seatbelt use: always water heater temp set < 120 deg: No working smoke detector in home: Yes fire extinguisher in home: No carbon monox detector in home: Yes firearms in home: Yes firearms unloaded and locked: Yes do you feel safe at home: Yes Smoking Status: Never smoker second hand exposure: Yes (s/o smokes outside the home) alcohol intake: never substance use type: marijuana during the past year weight has: remained stable well-balanced diet: about half the time daily servings fruits/ve-4 caffeine: Yes Type(s) of exercise: none Meds Home Medications and Allergies Home Medications Medication Instructions Recorded Confirmed Type No Known Home Medications 01/06/23 01/06/23 History Allergies Allergy/AdvReac Type Severity Reaction Status Date / Time No Known Drug Allergies Allergy Verified 01/01/23 11:40 OB Exam Narrative Exam Narrative: Gen: NAD, sitting comfortably in bed, appears well CV: RRR, no murmurs Resp: clear to auscultation bilaterally Abd: soft, nontender, gravid Ext: no edema Objective Labs 01/06/23 08:00 Labs: Laboratory Results - last 24 hr 01/06/23 01/06/23 08:00 08:00 WBC 13.1 H RBC 3.89 L Hgb 10.0 L Hct 31.0 L MCV 79.6 L MCH 25.8 L MCHC 32.4 RDW 15.9 H Plt Count 278 Neut % (Auto) 77.5 H Lymph % (Auto) 12.5 L [place] % (Auto) 9.0 Eos % (Auto) 0.5 L Baso % (Auto) 0.5 Neut # (Auto) 97828 H Lymph # (Auto) 1600 [place] # (Auto) 1200 H Eos # (Auto) 100 Baso # (Auto) 100 Blood Type O Positive Antibody Screen Negative Assessment and Plan Assessment and Plan Assessment and Plan narrative: 22yo at 39w1d here for elective IOL. GBS positive, Rh positive. Hutchison score 7. - Expectant management, anticipate - FHT reassuring - GBS positive, start ampicillin prophylaxis now - Start pitocin, titrate as tolerated - Epidural when desired for pain control
[2023-01-06] MEDS: AMPICILLIN 2,000 MG in SODIUM CHLORIDE 0.9% 100 ML 200 MG IV (10:55)
--- NOTE | 2023-01-06 12:28 | PM.AN.REGBLK ---
[facility] <Rafiq Carnes, DO - Last Filed: 01/07/23 07:18> Pre-procedure Procedure: Continuous Lumbar Epidural for L&D Attending OB provider: Britta Wilburn PMH/ROS narrative: term, no complications. No significant PMH. ROS negative. ASA Class: II Labs: Hct 31.0 % (36-46) L 01/06/23 08:00 Plt Count 278 X10^3/uL (150-400) 01/06/23 08:00 Medications: Current Medications Generic Name Dose Route Start Last Admin Trade Name Freq PRN Reason Stop Dose Admin Carboprost Tromethamine 250 mcg 01/06/23 08:20 Carboprost 250 Mcg/Ml Ampul IM Q90M PRN Bleeding Lactated Ringer's 1,000 mls @ 100 mls/hr 01/06/23 08:30 01/06/23 08:59 Lactated Ringers IV 100 mls/hr CONT NENITA Administration Oxytocin/Lactated Ringer's 30 unit in 500 mls @ 1 mls/hr 01/06/23 08:30 Oxytocin Premix IV TITRATE NENITA Protocol 1 MILLIUNIT/MIN Oxytocin/Lactated Ringer's 30 unit in 500 mls @ 200 mls/hr 01/06/23 08:20 Oxytocin Premix IV CONT PRN Bleeding Protocol Tranexamic Acid 1,000 mg/ 100 mls @ 200 mls/hr 01/06/23 08:20 Sodium Chloride IV NOW PRN Bleeding Oxytocin/Lactated Ringer's 30 unit in 500 mls @ 2 mls/hr 01/06/23 08:30 01/06/23 09:00 Oxytocin Premix IV 2 milliunit/min TITRATE NENITA 2 mls/hr Administration Protocol 2 MILLIUNIT/MIN Ampicillin Sodium 1,000 mg/ 100 mls @ 200 mls/hr 01/06/23 15:00 Sodium Chloride IV Q4H NENITA Lidocaine HCl 20 ml 01/06/23 08:20 Lidocaine 1% 20 Ml INJ INTRA-OP PRN Post Delivery Methylergonovine Maleate 0.2 mg 01/06/23 08:20 Methylergonovine 0.2 Mg Tablet PO Q6HR PRN Heavy Bleeding Methylergonovine Maleate 0.2 mg 01/06/23 08:20 Methylergonovine 0.2 Mg/Ml Vial IM NOW PRN Bleeding Misoprostol 800 mcg 01/06/23 08:20 Misoprostol 200 Mcg Tablet MN NOW PRN Bleeding Misoprostol 400 mcg 01/06/23 08:20 Misoprostol 200 Mcg Tablet SL NOW PRN Bleeding Naloxone HCl 0.2 mg 01/06/23 08:20 Naloxone 0.4 Mg/Ml Vial IV Q2MIN PRN Opiate Reversal Ondansetron HCl 4 mg 01/06/23 08:20 Ondansetron 4 Mg/2 Ml Inj IV Q4HR PRN Nausea And Vomiting Oxytocin 10 unit 01/06/23 08:20 Oxytocin 10 Unit/Ml Vial IM NOW PRN Bleeding Allergies: Allergies Allergy/AdvReac Type Severity Reaction Status Date / Time No Known Drug Allergies Allergy Verified 01/01/23 11:40 Procedure Insertion date: 01/06/23 Insertion time: 12:40 Prep/Local: betadine x3 and 1% lidocaine Interspace: L3-4 Patient position: sitting Needle: 18 gauge Hustead (CSE: 27g Pencan through Hustead, clear CSF, 2.5mg MPF bupiv) Loss of resistance with: saline SARAHY at (cm): 5 Catheter placed at SKIN (cm): 11 Catheter in SPACE (cm): 6 Insertion: No CSF, No Blood, No Paresthesia with insertion, No Paresthesia with injection and No Test dose reaction Initial Medications TEST DOSE time: 12:42 TEST DOSE: 1.5% lidocaine with epinephrine 1:200k (mL): 3 BOLUS DOSE time: 12:54 BOLUS DOSE (mL): 4 BOLUS DOSE med: other (infusate) Infusion INFUSION: 0.125% bupivacaine and with fentanyl 2 mcg/mL Initial rate (mL/hr): 8 Subsequent interventions: 8mL/h + 4mL q15m bolus PCEA Post-procedure Anesthesia time START: 12:32 <Maribell Thomas, DO - Last Filed: 01/06/23 17:54> Post-procedure Anesthesia time END: 17:04 Post-procedure Anesthesia Assessment: Yes CV function: HR/BP stable, Yes Resp function: RR/sat/airway adequate, Yes Post-op hydration adequate, Yes Pain control adequate, Yes Nausea & vomiting absent, Yes Temperature > 36 C, Yes Mental status appropriate and Yes Anesthesia complications
[2023-01-06] MEDS: AMPICILLIN 1,000 MG in SODIUM CHLORIDE 0.9% 100 ML 200 MG IV (14:44)
--- NOTE | 2023-01-06 15:00 | PM.OBPNLAB ---
Date/Time Date Patient Seen: 01/06/23 Pain Control Pain control: epidural Pelvic Exam Dilation (cm): 6 Effacement (%): 70 station: -2 Amniotic membrane status: Ruptured Comments: After informed consent, AROM performed with production of copious clear fluid Contractions Monitor mode: External Pitocin rate (mU/min): 4 Contraction frequency (min): 2 Contraction duration (min): 1 Contraction pattern: Regular Status status: Category l Heart Rate Baseline: 125 Monitor Accelerations: Present Monitor Decelerations: Absent Monitor Variability: Moderate Assessment and Plan Comments: 22yo at 39w1d here for elective IOL. GBS positive, Rh positive. AROM performed with clear fluid present after adequate GBS prophylaxis. - Expectant management, anticipate - Continue GBS prophylaxis - Continue pitocin, titrate as tolerated - Epidural in place for pain control - FHT reassuring
--- NOTE | 2023-01-06 15:24 | PM.EVENT ---
Event Note Event Note (Rapid Response, Code, or fall): Pt seen for increased pain post AROM. States pain 3/10 and getting worse, crampy feeling in lower abdomen and anus. Level checked, T11 on Right T 12 on Left. Increased rate to 10 mL/hour and gave 5 mL bolus of pump solution.
--- NOTE | 2023-01-06 17:01 | PM.OBPRVD ---
Labor & Delivery Delivery date: 01/06/23 Cervical ripening method: none Induction method: per pitocin protocol Delivery augmentation: rupture of membranes Delivery monitor: external FHT and external uterine Route of delivery: Episiotomy description: None L&D Laceration Description: None Quantitative Blood Loss: 50 Anesthesia Type: Epidural Complications: None Narrative: PROCEDURE: at 39w1d presented for elective IOL and was admitted to Labor and Delivery. She was initiated on pitocin, titrated to a maximum of 4 mU. The patient progressed through the 1st stage over 4 hours. AROM occured at 14:25 with clear fluid, after adequate GBS prophylaxis with ampicillin. Pain was controlled with an epidural. The patient progressed through the 2nd stage over 6 minutes and delivered a viable female with APGARs 8/9 at 16:46 via without complications. The cord was cut and clamped after it stopped pulsating. The placenta delivered with gentle cord traction, and appeared complete. The perineum and vagina were inspected with no lacerations. Needle and sponge counts were correct.? The vagina was inspected and no items were left in situ. Jesusita was doing well with Hadley, her , mother, sister, and friend at bedside. PREPROCEDURE DIAGNOSIS: Intrauterine at 39w1d GBS positive RH positive POSTPROCEDURE DIAGNOSIS: Intrauterine at 39w1d, delivered Same as preprocedure [place] Baby 1: Infant gender: Female Presentation: vertex Position: Left Occiput Anterior Placenta delivery description: Spontaneous Cord Vessel Description: 3 Vessels score (1 min): 8 score (5 min): 9 weight: 6 lb 7.141 oz Plan for aftercare: Routine care
[2023-01-06] MEDS: IBUPROFEN 600 MG TABLET PO (19:32)
[2023-01-06] MEDS: ACETAMINOPHEN 325 MG TABLET 650 MG PO (19:33)
[2023-01-06] MEDS: DERMOPLAST SPRAY 20% 60 ML 1 SPRAY TOP (19:34)
[2023-01-06] MEDS: LANOLIN OINT 7 GM 1 APPLIC TOP (19:34)
[2023-01-07] MEDS: IBUPROFEN 600 MG TABLET PO ×2 (02:13→10:20)
[2023-01-07] MEDS: ACETAMINOPHEN 325 MG TABLET 650 MG PO ×2 (02:13→10:20)
--- NOTE | 2023-01-07 14:18 | PM.OBDS.1 ---
Discharge Providers Provider Date of admission: 01/06/23 07:24 Discharge Date: 01/07/23 Primary care physician: Britta Wilburn MD Consults: 01/06/23 08:20 Consult to Anesthesiology Urgent Comment: Consulting Provider: Anesthesiologist Reason for consultation: Epidural 01/07/23 17:00 Consult to Biztalk Software Developer Routine Comment: Discharge provider: Britta Wilburn MD Summary Hospital Course Date Patient Seen: 01/07/23 Diagnoses: Intrauterine at 39w1d GBS positive RH positive Hospital Course: The pt presented for elective IOL. She received pitocin for induction. AROM was performed with clear fluid present. She progressed to complete and had an of a viable baby girl without complications. There were no lacerations. , there were no complications. At the time of discharge she was voiding, ambulating, and passing flatus without difficulty. Her lochia was decreasing appropriately. Her pain was well controlled. She is , and working with for effective feedings. She will f/u in 6 weeks for check. Peripartum Data Delivery Method: Natural Vaginal Laceration Description: None Episiotomy description: None Procedures: Spontaneous vaginal delivery complications: none [place] 1: Gender: Female Disposition of : home Discharge Diagnosis (1) Spontaneous vaginal delivery: Status: Acute Time Spent with Patient Time attestation: Total time spent providing and/or coordinating discharge services: Objective Labs 01/06/23 08:00 Exam Narrative Exam Narrative: Gen: NAD, sitting comfortably in bed, appears well CV: RRR, no murmurs Resp: clear to auscultation bilaterally Abd: soft, appropriately tender, fundus firm and below the umbilicus, nondistended Ext: no edema Discharge Plan Discharge Plan Patient Disposition: Home Discharge orders & Medications Prescriptions: New acetaminophen 325 mg Tablet 650 mg PO Q6HR PRN (Reason: Pain, Mild (1-3)) Qty: 30 0RF docusate sodium 100 mg Capsule 100 mg PO DAILY Qty: 30 0RF ferrous sulfate 325 mg (65 mg iron) Tablet 325 mg PO DAILY Qty: 30 0RF ibuprofen 600 mg Tablet 600 mg PO Q6HR PRN (Reason: Pain, Mild (1-3)) Qty: 30 0RF Follow up/Referrals: Britta Wilburn MD [Primary Care Provider] - 6 Weeks Diet/Activity/Treatments Diet: Diet as Tolerated and Regular Skin/Wound/Dressing Care Report to your healthcare provider any signs of infection, such as:: chills, fever, increased pain and unusual drainage Visit Report/Discharge Packet Instructions: DI for Labor and Delivery, Vaginal Stand Alone Forms: Patient Portal/API, Stroke Signs & Symptoms Discharge Data Primary Care Provider: Britta Wilburn
== END 2023-01-07 18:20 | disposition home or self-care (01) | DRG 807 ==
PROVIDERS: Admitting Provider Family Medicine; PCP Family Medicine; Referring Provider Family Medicine; Visit Provider Family Medicine
DX: O99.824 Streptococcus B carrier state complicating childbirth (principal); Z37.0 Single live birth; Z3A.39 39 weeks gestation of pregnancy; Z67.40 Type O blood, Rh positive
CPT/HCPCS: 36415; 59050; 59410; 85025; 86850; 86900; 86901; G0379; J0290; J2590

== ENCOUNTER 2023-08-31 19:11 | Observation (INO) | payer BC, OTHER, SELFPAY ==
[2023-08-31] VITALS (14 sets, daily range): BP systolic 113–133; BP diastolic 71–77; PULSE 106–147; RESP 14–38; TEMP 37.1–38.1; O2SAT 99–100; BMI 18.8; BMI 18.6
--- NOTE | 2023-08-31 19:39 | ED_ITS ---
HPI - Abdominal Pain General Chief Complaint: Abdominal Pain Stated Complaint: poss apendicitis Time Seen by Provider: 08/31/23 19:27 Source: patient Mode of arrival: Ambulatory History of Present Illness HPI narrative: Patient is a 23-year-old healthy female currently breast feeding but without any other medical history presenting today with some nausea vomiting abdominal pain. He has had significant decreased appetite and oral intake over the last 24 hours. She may have had a fever but was sitting in front of a heater she always it is in front of a heater. She does have significant pain in her right lower quadrant. She is noted to be tachycardic denies any chest pain cough shortness of breath or sore throat. Related Data Home Medications Medication Instructions Recorded Confirmed No Known Home Medications 08/31/23 08/31/23 Allergies Allergy/AdvReac Type Severity Reaction Status Date / Time No Known Drug Allergies Allergy Verified 08/31/23 19:22 Patient History Medical History (Updated 08/31/23 @ 22:37 by Prema Ramírez DO) Mother currently breast-feeding Spontaneous vaginal delivery Retained placenta Encounter for supervision of other normal , second trimester IUGR (intrauterine growth restriction) Elevated blood pressure affecting in third trimester, antepartum Tetralogy of Fallot of fetus affecting management of mother in brown , antepartum Two vessel umbilical cord Pityriasis rosea Anxiety Surgical History (Updated 09/02/22 @ 13:44 by Linnette Montero RN) No pertinent past surgical history Family History (Updated 09/02/22 @ 13:47 by Linnette Montero RN) Mother Depression Anxiety and depression Father Anxiety and depression Grandfather Hypertension Afib H/O aortic valve replacement Congestive heart failure Grandmother Rheumatoid arthritis Multi-organ failure with liver failure Grandfather Acute alcohol abuse Grandmother Emphysema of lung Sister Anxiety and depression Sister Bipolar disorder Social History marital status: number of children: 1 household members: significant other, family and children lives independently: Yes caregiver/support person: Yes housing: apartment pets and animals: Yes (1 cat, 1 dog, not involved in litter box care) education level: high school occupational status: employed current occupational exposures/hazards: Yes (safety issues with some patients ) special milagros needs: No travel history: over 6 months ago seatbelt use: always water heater temp set < 120 deg: No working smoke detector in home: Yes fire extinguisher in home: No carbon monox detector in home: Yes firearms in home: Yes firearms unloaded and locked: Yes do you feel safe at home: Yes Smoking Status: Never smoker second hand exposure: Yes (s/o smokes outside the home) alcohol intake: never substance use type: marijuana during the past year weight has: remained stable well-balanced diet: about half the time daily servings fruits/ve-4 caffeine: Yes Type(s) of exercise: none Smoking Status: Never smoker alcohol intake frequency: 0-2 drinks per day Substance Use Type: does not use Exam Initial Vital Signs Initial Vital Signs: Vital Signs Temperature 98.9 F 08/31/23 19:17 Pulse Rate 147 H 08/31/23 19:17 Respiratory Rate 18 08/31/23 19:17 Blood Pressure 113/75 08/31/23 19:17 Pulse Oximetry 99 08/31/23 19:17 Oxygen Delivery Method Room Air 08/31/23 19:17 GENERAL: Alert well-appearing 23 year and in no acute distress. HEENT: Head atraumatic,EOMI, pupils reactive, face symmetric, CARDIOVASCULAR: Regular rate and rhythm without murmurs, rubs or gallops. RESPIRATORY: Breath sounds equal bilaterally, no wheezes rales or rhonchi. ABDOMEN: Soft, mild right lower quadrant pain no guarding no rebound : No CVA tenderness EXTREMITIES: Normal range of motion, no clubbing or edema. Neurovascularly intact NEUROLOGICAL: Alert and oriented x4. SKIN: Warm, dry, no laceration, no petechiae, no rashes or lesions. Course Orders Ordered: ED Orders 08/31/23 19:28 RT Consult Eval and Treat NOW 08/31/23 19:30 Urine Microscopic Stat 08/31/23 19:34 Complete Blood Count AUTO DIFF Stat Comprehensive Metabolic Panel Stat Lactate (Lactic Acid) Stat Lipase Stat PTT Partial Thromboplastin Kevin Stat Procalcitonin Stat Prothrombin Time INR Stat 08/31/23 19:43 CT abdomen pelvis w con Stat 08/31/23 19:50 Blood Culture Stat 08/31/23 20:13 EKG-12 Lead Stat Acetaminophen (Acetaminophen 325 Mg Tablet) 650 mg PO Q6HR PRN PRN Reason: Fever/Mild Pain (1-3) Sodium Chloride (Normal Saline 0.9%) 1,564.89 mls @ 521.63 mls/hr 30 ml/kg infuse over 3 hr (1564.89 ml) IV NOW ONE Stop: 08/31/23 23:26 Last Infusion: 08/31/23 21:55 Dose: Infused Documented By: Admin: 08/31/23 20:51 Dose: 521.63 mls/hr Documented By: SHYANNE Sodium Chloride (Normal Saline 0.9%) 1,000 mls @ 150 mls/hr IV CONT NENITA Last Admin: 08/31/23 21:57 Dose: 150 mls/hr Documented By: MADAI Ondansetron HCl (Ondansetron 4 Mg/2 Ml Inj) 4 mg IV NOW PRN PRN Reason: Nausea And Vomiting Ondansetron HCl (Ondansetron 4 Mg Odt) 4 mg SL NOW PRN PRN Reason: Nausea And Vomiting Ondansetron HCl (Ondansetron 4 Mg/2 Ml Inj) 4 mg IV Q4HR PRN PRN Reason: Nausea And Vomiting Discontinued Medications Sodium Chloride (Normal Saline 0.9%) 1,000 mls @ 1,000 mls/hr IV BOLUS ONE Stop: 08/31/23 20:27 Last Infusion: 08/31/23 20:51 Dose: Infused Documented By: Admin: 08/31/23 19:51 Dose: 1,000 mls/hr Documented By: JAMIE Piperacillin Sod/Tazobactam (Sod 4.5 gm/ Sodium Chloride) 100 mls @ 200 mls/hr IV NOW ONE Stop: 08/31/23 20:28 Last Infusion: 08/31/23 21:41 Dose: Infused Documented By: Admin: 08/31/23 21:11 Dose: 200 mls/hr Documented By: JAMIE Ketorolac Tromethamine (Ketorolac 30 Mg/Ml Vial) 15 mg IV NOW ONE Stop: 08/31/23 19:44 Last Admin: 08/31/23 19:56 Dose: 15 mg Documented By: JAMIE Vital Signs Vital signs: Vital Signs - 8 hr 08/31/23 19:17 08/31/23 19:35 08/31/23 19:35 Temperature 98.9 F Pulse Rate 147 H 128 H Respiratory Rate 18 Blood Pressure 113/75 133/71 Pulse Oximetry 99 100 Oxygen Delivery Method Room Air 08/31/23 19:45 08/31/23 19:56 08/31/23 20:00 Temperature 100.6 F H Pulse Rate 141 H 137 H Respiratory Rate 16 Blood Pressure Pulse Oximetry 100 100 Oxygen Delivery Method Room Air Room Air 08/31/23 20:10 08/31/23 20:10 08/31/23 20:15 Temperature Pulse Rate 133 H 128 H Respiratory Rate 21 38 H Blood Pressure 120/77 Pulse Oximetry 100 100 Oxygen Delivery Method Room Air Room Air 08/31/23 20:24 08/31/23 20:24 08/31/23 20:30 Temperature Pulse Rate 122 H Respiratory Rate 18 Blood Pressure 119/71 116/74 Pulse Oximetry 100 Oxygen Delivery Method Room Air 08/31/23 20:30 Temperature Pulse Rate 123 H Respiratory Rate 26 H Blood Pressure Pulse Oximetry 100 Oxygen Delivery Method Room Air MDM - Abdominal Pain Lab Data 08/31/23 19:34 08/31/23 19:34 Labs: Lab Results 08/31/23 08/31/23 Range/Units 19:30 19:34 WBC 15.5 H (4.5-11.0) X10^3/uL RBC 4.21 (4.0-5.2) X10^6/uL Hgb 12.3 (12.0-16.0) g/dL Hct 37.3 (36-46) % MCV 88.8 (80-100) fL MCH 29.3 (26-34) PG MCHC 33.1 (30-36) % RDW 13.6 (11.6-14.8) % Plt Count 235 (150-400) X10^3/uL Neut % (Auto) 82.7 H (50-75) % Lymph % (Auto) 6.2 L (25-40) % [place] % (Auto) 10.8 (3-14) % Eos % (Auto) 0.0 L (2-4) % Baso % (Auto) 0.3 (0-2) % Neut # (Auto) 85322 H (0453-3522) /uL Lymph # (Auto) 1000 L (2559-7076) /uL [place] # (Auto) 1700 H (0-900) /uL Eos # (Auto) 0 (0-450) /uL Baso # (Auto) 100 (0-100) /uL PT 13.2 H (9.4-12.5) SECONDS INR 1.2 (0.9-1.3) APTT 31 (25.1-36.5) SECONDS Sodium 138 (137-145) mmol/L Potassium 3.5 (3.4-5.1) mmol/L Chloride 102 (98-107) mmol/L Carbon Dioxide 27 (22-32) mmol/L BUN 8 (7-17) mg/dL Creatinine 0.58 (0.52-1.04) mg/dL Estimated GFR > 60 (>60) mL/min BUN/Creatinine Ratio 13.8 (6-22) Glucose 100 (70-100) mg/dL Lactate 0.7 (0.7-2.1) mmol/L Calcium 9.3 (8.4-10.2) mg/dL Total Bilirubin 1.3 (0.2-1.3) mg/dL AST 23 (14-36) IU/L ALT 14 (<35) IU/L Alkaline Phosphatase 86 (38-126) U/L Total Protein 8.4 H (6.3-8.2) g/dL Albumin 4.8 (3.5-5.0) g/dL Globulin 3.6 (1.7-4.1) g/dL Albumin/Globulin Ratio 1.3 (1.0-2.8) Lipase 74 (23-300) U/L Procalcitonin 0.05 (<0.5) ng/mL Urine RBC 1-5/hpf (0-5/HPF) Urine WBC 0-1/hpf (0-5/HPF) Ur Squamous Epith Cells 0-1 /hpf (0-5/HPF) Urine Bacteria None seen (None) Urine Mucus 1+ H (Negative) Ur Culture Indicated? Cult not indicated Vol Urine Centrifuged 10ml (spun) Point of care testing: Point of Care Testing Test Results Negative Urine Dip Bedside Urine Glucose Negative Bedside Urine Bilirubin - Negative Bedside Urine Ketone +++ 80 Urine Specific [place] 1.020 Bedside Urine Occult Blood + Bedside Urine pH 6.0 Bedside Urine Protein +/- 15 Bedside Urine Urobilinogen - Negative Bedside Urine Nitrite - Negative Bedside Urine Leukocytes +/- [address] scan - abdomen/pelvis: Radiologist's Impression: PROCEDURE: CT ABDOMEN PELVIS W CON INDICATIONS: rlq pain TECHNIQUE: After the administration of intravenous contrast, axial sections acquired from the lung bases to the pubic symphysis. Coronal and sagittal reformats were performed. For radiation dose reduction, the following was used: automated exposure control, adjustment of mA and/or kV according to patient size. COMPARISON: None. FINDINGS: Image quality: Diagnostic. Lower Chest: No significant findings. ABDOMEN: Liver: No solid mass. Gallbladder: No radiopaque gallstones or wall thickening. Biliary ducts: No biliary dilation. Pancreas: No ductal dilation. Spleen: Size is within normal limits. Adrenal Glands: No adrenal nodules. Kidneys and Ureters: No hydronephrosis. No solid mass. No complex renal cystic lesion which requires follow up. Stomach and Bowel: The appendix is distended, with a thickened wall. There is obstructing appendicolith at the base measuring 4 mm. Reactive changes in the right lower quadrant are present. The wall demonstrates homogeneous enhancement. Peritoneum: Small volume free fluid in the abdomen, presumably reactive. No abscess. Ventral Wall: No hernia. Abdominal Nodes: No retroperitoneal or mesenteric adenopathy by size criteria. Vessels: Aorta and inferior vena cava are normal in size. PELVIS: Pelvic Organs: Unremarkable. Bladder: Unremarkable. Pelvic Nodes: No enlarged lymph nodes. Miscellaneous: No inguinal hernias are seen. Bones: No aggressive osseous abnormality. IMPRESSION: Uncomplicated acute appendicitis. No evidence perforation or abscess. Dictated by: Tobi Meehan M.D. on 08/31/2023 at 20:17 Approved by: Tobi Meehan M.D. on 08/31/2023 at 20:19 [facility] Narrative Medical decision making narrative: Patient is a 23-year-old healthy female presenting today with right lower quadrant pain ongoing for the last couple of days. She is noted to be quite tachycardic heart rate in the 140s upon initial arrival but blood pressure remained stable she is afebrile with obvious tenderness in right lower quadrant. She Blood work is reviewed she is leukocytosis 15.5 with left shift, no electrolyte abnormality no DEANGELO, lactate 0.7, procalcitonin 0.5 CT abdomen pelvis does show non complicated acute appendicitis 2030 DR. Malcolm surgery updated on patient's symptoms test results agrees to admission Patient is given sepsis fluids, along with Toradol. Her heart rate did improve. Blood pressure remains stable she has not have any evidence of shock she appears well. She is also given dose of Zosyn Discharge Plan Departure Patient Disposition: Admitted as Observation Clinical Impression: Acute appendicitis Admit Date/Time: 08/31/23 20:36 Admit Provider: Shemar Sims
--- NOTE | 2023-08-31 19:43 | DI.CT.S_ITS ---
PROCEDURE: CT ABDOMEN PELVIS W CON INDICATIONS: rlq pain TECHNIQUE: After the administration of intravenous contrast, axial sections acquired from the lung bases to the pubic symphysis. Coronal and sagittal reformats were performed. For radiation dose reduction, the following was used: automated exposure control, adjustment of mA and/or kV according to patient size. COMPARISON: None. FINDINGS: Image quality: Diagnostic. Lower Chest: No significant findings. ABDOMEN: Liver: No solid mass. Gallbladder: No radiopaque gallstones or wall thickening. Biliary ducts: No biliary dilation. Pancreas: No ductal dilation. Spleen: Size is within normal limits. Adrenal Glands: No adrenal nodules. Kidneys and Ureters: No hydronephrosis. No solid mass. No complex renal cystic lesion which requires follow up. Stomach and Bowel: The appendix is distended, with a thickened wall. There is obstructing appendicolith at the base measuring 4 mm. Reactive changes in the right lower quadrant are present. The wall demonstrates homogeneous enhancement. Peritoneum: Small volume free fluid in the abdomen, presumably reactive. No abscess. Ventral Wall: No hernia. Abdominal Nodes: No retroperitoneal or mesenteric adenopathy by size criteria. Vessels: Aorta and inferior vena cava are normal in size. PELVIS: Pelvic Organs: Unremarkable. Bladder: Unremarkable. Pelvic Nodes: No enlarged lymph nodes. Miscellaneous: No inguinal hernias are seen. Bones: No aggressive osseous abnormality. IMPRESSION: Uncomplicated acute appendicitis. No evidence perforation or abscess. Dictated by: Tobi Meehan M.D. on 08/31/2023 at 20:17 Approved by: Tobi Meehan M.D. on 08/31/2023 at 20:19
[2023-08-31 19:46] LABS: Add Manual Diff / Slide Review NO; Basophils Absolute Auto 100 /uL (0-100); Basophils Percent Auto 0.3 % (0-2); Eosinophils Absolute Auto 0 /uL (0-450); Hematocrit 37.3 % (36-46); Hemoglobin 12.3 g/dL (12.0-16.0); Lymphocytes Absolute Auto 1000 /uL (1100-4500); Lymphocytes Percent Auto 6.2 % (25-40); Mean Corpuscular HGB Conc 33.1 % (30-36); Mean Corpuscular Hemoglobin 29.3 PG (26-34); Mean Corpuscular Volume 88.8 fL (80-100); Monocytes Absolute Auto 1700 /uL (0-900); Monocytes Percent Auto 10.8 % (3-14); Neutrophils Absolute Auto 12800 /uL (1500-7000); Neutrophils Percent Auto 82.7 % (50-75); Platelet Count 235 X10^3/uL (150-400); Red Blood Cell Count 4.21 X10^6/uL (4.0-5.2); Red Cell Distribution Width 13.6 % (11.6-14.8); White Blood Cell Count 15.5 X10^3/uL (4.5-11.0)
[2023-08-31] MEDS: SODIUM CHLORIDE 0.9% 1,000 ML 1000 ML IV (19:51)
[2023-08-31] MEDS: KETOROLAC 30 MG/ML VIAL 15 MG IV (19:56)
[2023-08-31 19:57] LABS: INR 1.2 (0.9-1.3); Prothrombin Time 13.2 SECONDS (9.4-12.5)
[2023-08-31 20:00] LABS: PTT Partial Thromboplastin Tim 31 SECONDS (25.1-36.5)
[2023-08-31 20:03] LABS: Alanine Aminotransferase 14 IU/L (<35); Albumin 4.8 g/dL (3.5-5.0); Albumin Globulin Ratio 1.3 (1.0-2.8); Alkaline Phosphatase 86 U/L (38-126); Aspartate Aminotransferase 23 IU/L (14-36); BUN Creatinine Ratio 13.8 (6-22); Bilirubin Total 1.3 mg/dL (0.2-1.3); Blood Urea Nitrogen 8 mg/dL (7-17); Calcium 9.3 mg/dL (8.4-10.2); Carbon Dioxide 27 mmol/L (22-32); Chloride 102 mmol/L (98-107); Estimated Glomerular Filt Rate > 60 mL/min (>60); Globulin 3.6 g/dL (1.7-4.1); Glucose 100 mg/dL (70-100); HEMOLYSIS < 15 (0-50); Lactate (Lactic Acid) 0.7 mmol/L (0.7-2.1); Lipase 74 U/L (23-300); Potassium 3.5 mmol/L (3.4-5.1); Sodium 138 mmol/L (137-145); Total Protein 8.4 g/dL (6.3-8.2)
[2023-08-31 20:17] LABS: Urine Volume 10mL (spun)
[2023-08-31 20:18] LABS: Bacteria Urine None Seen; Culture Indicated Urine Cult Not Indicated; Mucus Urine 1+ (Negative); RBC Urine 1-5/HPF (0-5/HPF); Squamous Epithelial Cell Urine 0-1 /HPF (0-5/HPF); WBC Urine 0-1/HPF (0-5/HPF)
[2023-08-31 20:19] LABS: Procalcitonin 0.05 ng/mL (<0.5)
[2023-08-31] MEDS: SODIUM CHLORIDE 0.9% 1,564.89 ML 521.63 ML IV (20:51)
[2023-08-31] MEDS: PIPERACILLIN/TAZO 4.5 GM in SODIUM CHLORIDE 0.9% 100 ML IV (21:11)
[2023-08-31] MEDS: SODIUM CHLORIDE 0.9% 1,000 ML 150 ML IV (21:57)
[2023-09-01] VITALS (13 sets, daily range): BP systolic 98–126; BP diastolic 49–72; PULSE 86–129; RESP 13–18; TEMP 36.4–37.1; O2SAT 97–100; BMI 18.6
--- NOTE | 2023-09-01 | PATH_ITS ---
[facility] Accession Number: [id number] No. of containers..01 Tissue . 01 Material submitted: . appendix - APPENDIX . 01 Diagnosis: Appendix, Appendectomy: Acute appendicitis with serositis. No evidence of neoplasm. AISHA 09/03/2023 1102 Local . 01 Electronically signed: . Antonio Rodríguez MD, PhD, Pathologist NPI- [id number] . 01 Gross description: . The specimen is received in formalin labeled with the patient's name, , and appendix, consists of a vermiform appendix measuring 6.0 cm in length by 0.9 cm in average diameter with violaceous, roughened serosa and minimal mesoappendix extending out to 0.7 cm. The margin is inked blue. Sectioning reveals a patent lumen measuring 0.3 cm in diameter containing wheeler semi-solid material. The ornelas average 0.4 cm thick with no perforations or lesions identified. Sustainability Officer sections to include the margin, one-half of the bisected distal tip, and cross sections are submitted in cassette A1. ([id number]) /MRV 09/02/2023 1347 Local . 01 Pathologist provided ICD-10: K35.80 . 01 CPT . 912008 Specimen Comment: A courtesy copy of this report has been sent to [phone] Performed at: 01 [facility] [address] [place] [address], [place], [place] [id number] MD Kurtis Smith MD Phone: [phone]
[2023-09-01] MEDS: SODIUM CHLORIDE 0.9% 1,000 ML 150 ML IV ×2 (00:59→08:19)
[2023-09-01] MEDS: PIPERACILLIN/TAZO 3.375 GM in SODIUM CHLORIDE 0.9% 100 ML IV ×2 (01:51→10:13)
--- NOTE | 2023-09-01 08:35 | P.HP_ITS ---
History of Present Illness History of Present Illness Date Patient Seen: 09/01/23 Time Patient Seen: 08:35 Chief complaint: poss apendicitis Narrative: Jesusita is a 23-year-old woman who presented with about 24 hours of abdominal pain. She was found to have acute appendicitis on CT scan. She had a leukocytosis. Initially she was quite tachycardic but that resolved after IV fluid resuscitation. Otherwise vital signs have been normal. She has never had abdominal surgery before. [facility] Medical History (Updated 08/31/23 @ 22:37 by Prema Ramírez DO) Mother currently breast-feeding Spontaneous vaginal delivery Retained placenta Encounter for supervision of other normal , second trimester IUGR (intrauterine growth restriction) Elevated blood pressure affecting in third trimester, antepartum Tetralogy of Fallot of fetus affecting management of mother in brown , antepartum Two vessel umbilical cord Pityriasis rosea Anxiety Surgical History (Updated 09/02/22 @ 13:44 by Linnette Montero RN) No pertinent past surgical history Family History (Updated 09/02/22 @ 13:47 by Linnette Montero RN) Mother Depression Anxiety and depression Father Anxiety and depression Grandfather Hypertension Afib H/O aortic valve replacement Congestive heart failure Grandmother Rheumatoid arthritis Multi-organ failure with liver failure Grandfather Acute alcohol abuse Grandmother Emphysema of lung Sister Anxiety and depression Sister Bipolar disorder Social History marital status: number of children: 1 household members: significant other, family and children lives independently: Yes caregiver/support person: Yes housing: apartment pets and animals: Yes (1 cat, 1 dog, not involved in litter box care) education level: high school occupational status: employed current occupational exposures/hazards: Yes (safety issues with some patients ) special milagros needs: No travel history: over 6 months ago seatbelt use: always water heater temp set < 120 deg: No working smoke detector in home: Yes fire extinguisher in home: No carbon monox detector in home: Yes firearms in home: Yes firearms unloaded and locked: Yes do you feel safe at home: Yes Smoking Status: Never smoker second hand exposure: Yes (s/o smokes outside the home) alcohol intake: never substance use type: marijuana during the past year weight has: remained stable well-balanced diet: about half the time daily servings fruits/ve-4 caffeine: Yes Type(s) of exercise: none Meds Home Medications and Allergies Home Medications Medication Instructions Recorded Confirmed Type No Known Home Medications 08/31/23 08/31/23 History Allergies Allergy/AdvReac Type Severity Reaction Status Date / Time No Known Drug Allergies Allergy Verified 08/31/23 19:22 Exam Vital Signs (past 8 hours): - 09/01/23 02:00 09/01/23 06:00 09/01/23 07:53 Temperature 97.9 F 98.3 F 97.5 F L Pulse Rate 86 92 H 92 H Respiratory Rate 16 18 18 Blood Pressure 103/55 L 106/64 105/62 Pulse Oximetry 98 98 98 Oxygen Flow Rate 0 Oxygen Delivery Method Room Air Oxygen Flow Rate 0 Narrative Exam Narrative: Tender to palpation at McBurney's point Objective Labs 08/31/23 19:34 08/31/23 19:34 Labs: Laboratory Results - last 24 hr 08/31/23 08/31/23 19:30 19:34 WBC 15.5 H RBC 4.21 Hgb 12.3 Hct 37.3 MCV 88.8 MCH 29.3 MCHC 33.1 RDW 13.6 Plt Count 235 Neut % (Auto) 82.7 H Lymph % (Auto) 6.2 L [place] % (Auto) 10.8 Eos % (Auto) 0.0 L Baso % (Auto) 0.3 Neut # (Auto) 66262 H Lymph # (Auto) 1000 L [place] # (Auto) 1700 H Eos # (Auto) 0 Baso # (Auto) 100 PT 13.2 H INR 1.2 APTT 31 Sodium 138 Potassium 3.5 Chloride 102 Carbon Dioxide 27 BUN 8 Creatinine 0.58 Estimated GFR > 60 BUN/Creatinine Ratio 13.8 Glucose 100 Lactate 0.7 Calcium 9.3 Total Bilirubin 1.3 AST 23 ALT 14 Alkaline Phosphatase 86 Total Protein 8.4 H Albumin 4.8 Globulin 3.6 Albumin/Globulin Ratio 1.3 Lipase 74 Procalcitonin 0.05 Urine RBC 1-5/hpf Urine WBC 0-1/hpf Ur Squamous Epith Cells 0-1 /hpf Urine Bacteria None seen Urine Mucus 1+ H Ur Culture Indicated? Cult not indicated Vol Urine Centrifuged 10ml (spun) Assessment & Plan Assessment and plan (1) Acute appendicitis: Status: Acute Plan We discussed the risks, benefits and alternatives of laparoscopic appendectomy for acute appendicitis and she would like to proceed.
[2023-09-01] MEDS: ACETAMINOPHEN IV 1,000 MG/100 ML VIAL 400 MG IV (10:55)
[2023-09-01] MEDS: LACTATED RINGERS 1,000 ML 42 ML IV ×2 (10:55→14:16)
--- NOTE | 2023-09-01 10:58 | CM.DANOTE ---
Addendum entered by REYNA Pena 09/01/23 13:43: ADD: SW met bedside with pt and sister and explained role and they confirm they live in [place] and pt is still hopeful to d/c home later today but currently feeling quite nauseous with coming off anesthesia. Pt confirms that her goal to get home is her 8 mo baby, pt's second baby, as her breast milk supply is much lower this second time of breast feeding and does not want to lose her supply if possible. Pt and sister deny any d/c needs and sister plans to provide transport and assist as needed. BF Original Note: Patient is a 23 yo female who was admitted on 08/31/23 for Abd Pain. Pt has [employer] for insurance and her PCP is Dr. Britta Wilburn. EMR was reviewed. Per Surgeon, pt with higher white count and tachy and determined to have Acute Appendicitis and plan for Lap Appe today. Per RN, pt had supportive sister bedside and lives locally with Sig Other and family and plan is surgery this morning with attempt to d/c home later today as pt is currently breast feeding her 8 mo baby at home. Pt is active and independent at baseline, works, drives and currently no discharge planning needs identified pending progress post surgery as pt doesn't have any hx of surgical intervention or sedating medications. SW attempted to meet bedside with pt but off the floor to OR for Lap Vivian already. Plan: SW to follow closely for pt progress post surgery this morning to confirm safe plan of d/c home with supportive family later today and any further identified discharge planning needs. REYNA Pena Discharge Planning/Care Management CM Discharge Assessment Start: 09/01/23 10:56 Freq: Status: Active Protocol: Document 09/01/23 10:56 BF (Rec: 09/01/23 10:58 [id number]) Discharge Planning Assessment Assigned Academic Associate REYNA Espinoza DPOA/Assigned Designee Name none Advance Directives? No Advance Directives on File No History Provided By Patient,Family Member,Medical Record Has Patient been admitted in last 30 No days? Prior Living Arrangements Apartment/Condo Household Members significant other,family, children Type of transporation used prior to Drives own vehicle admit Independent with ADL's Yes Is patient alert and oriented? Yes Caregiver for Another Yes: 8 mo baby at home Barriers to Discharge No Discharge Plan Home Transportation Arrangement sister bedside and can transport at d/c Referrals Initiated None needed Review Status In Process Please Provide Date Initial DC 09/01/23 Assessment Was Performed Next Review Type Continued Stay Review
--- NOTE | 2023-09-01 11:28 | SUR.OPER ---
Supine on padded OR bed, head on pillow, right arm secured on padded arm board at <90 degrees abduction, left arm padded and tucked, legs uncrossed, safety belt at thigh, tape over blanket over lower legs.
[2023-09-01] MEDS: BUPIVACAINE 0.5% (PF) 30 ML, EPINEPHrine 0.15 MG INJ (12:07)
--- NOTE | 2023-09-01 12:31 | P.OP_ITS ---
Operative Date/Time/Diagnoses Date of procedure: 09/01/23 Time of procedure: 12:31 Pre-op diagnosis: Acute appendicitis Post-op diagnosis: same Procedure & Clinicians Procedure: Laparoscopic appendectomy Same procedure as scheduled: Yes Surgeon: Shemar Sims Anesthesia Type: General Operative Notes Procedure in detail: The patient was on IV antibiotics. The patient was brought to the operating room, placed on the table in the supine position and general endotracheal anesthesia was induced. A time-out was performed. The abdomen was prepped and draped in the usual fashion. After injection of 0.25% Marcaine a 1 cm infraumbilical incision was created with a 15 blade scalpel. The umbilical stalk was grasped with a Mendy clamp to elevate the abdominal wall. The infraumbilical midline fascia was cleared over 1 cm and the fascia was scored with cautery. The peritoneum was pierced with a Peon clamp. The Stephanie port was placed and the abdomen was insufflated to 15 mmHg. The camera was inserted and there was no evidence of any injury from the entry. Next, 5 mm ports were placed in the suprapubic and left lower quadrant positions under direct vision. The patient was placed in Trendelenburg with the right-side elevated. The terminal ileum was swept away from the cecum and the appendix was visualized. The appendix was inflamed and distended but not perforated and there was no evidence of gangrene. The appendix was lying in the right pericolic gutter and quite adherent to the ascending colon. A window was created mesoappendix and the power seal was used to divide the mesoappendix from the base of the appendix to tip. The tip of the appendix was quite enlarged and slightly . Two PDS Endoloops were placed at the base and a 3rd endoloop was placed about a cm distally and the appendix was divided sharply. The specimen was placed in a Endo-Catch bag. A small amount of fluid with suctioned from the base of the appendix and pelvis. The table was flattened and the terminal ileum and omentum were allowed to slide in over the appendiceal stump. Finally, the 5 mm ports were removed under direct vision. The pneumoperitoneum was released and the Stephanie port was removed followed by the Endo-Catch bag. Additional local was in jected into the fascia and the infraumbilical incision was closed with 2 interrupted 2-0 Vicryl sutures. The skin incisions were closed with 4 Monocryl. Steri-Strips were applied followed by Band-Aids. EBL: 5 mL Specimen: Appendix Post-operative Condition: stable Disposition: PACU
[2023-09-01] MEDS: ACETAMINOPHEN 325 MG TABLET 650 MG PO (17:26)
== END 2023-09-01 18:18 | disposition home or self-care (01) ==
LOC: ED 19:27 → AC 20:37
PROVIDERS: Admitting Provider Surgery; Emergency Provider Emergency Medicine; PCP Family Medicine; Referring Provider Emergency Medicine; Visit Provider Surgery
PROC: 0DTJ4ZZ Resection of Appendix, Percutaneous Endoscopic Approach (ICD-10-PCS; CPT 44970; principal; 2023-09-01 11:00)
DX: K35.890 Other acute appendicitis without perforation or gangrene (principal); Z39.1 Encounter for care and examination of lactating mother
CPT/HCPCS: 44970; 36415; 74177; 80053; 81003; 81015; 81025; 83605; 83690; 84145; 85025; 85610; 85730; 87040; 93005; 96365; 96366; 96375; 99222; 99285; G0378; J0136; J0171; J1100; J1885; J2250; J2405; J2543; J2704; J3010; Q9967

== ENCOUNTER → 2024-05-03 14:44 | Outpatient (CLI) | payer OTHER, SELFPAY ==
[2024-02-11 14:41] VITALS: BMI 18.6
== END ==
PROVIDERS: PCP Family Medicine; Visit Provider Family Medicine
DX: N89.8 Other specified noninflammatory disorders of vagina (principal)
CPT/HCPCS: 87210

== ENCOUNTER → 2025-05-18 15:43 | Outpatient (CLI) | payer OTHER, SELFPAY ==
[2024-02-11 14:41] VITALS: BMI 18.6
== END ==
PROVIDERS: PCP Family Medicine; Visit Provider Nurse Practitioner Family
DX: R30.0 Dysuria (principal)
CPT/HCPCS: 87077; 87086